=== PATIENT | male | born 1995 | race African-American/Black ===

== ENCOUNTER 2017-02-28 12:26 | Emergency (ER) | payer BC ==
--- NOTE | 2017-02-28 13:19 | EDPHY ---
H & P Stated Complaint: etoh last night n/v HPI/ROS: CHIEF COMPLAINT: Nausea, vomiting, weakness HISTORY OF PRESENT ILLNESS: The patient is a 21 y/o male complaining of nausea, vomiting, and weakness after drinking alcohol last night. He last drank at midnight last night, 13 hours ago; he is unsure how much he drank, but know that it was "alot". His symptoms began this morning. Does not believe he took any illicit substances. Denies urinary or bowel complaints, abdominal surgeries, fever, shortness of breath or other pertinent symptoms. REVIEW OF SYSTEMS: A ten point review of systems was performed and is negative with the exception of the items mentioned in the HPI. Past medical history: Denies Past surgical history: Right shoulder surgery Family history: Denies Social history: Lives in [place] Friend at bedside No tobacco use General Appearance: Alert. Vital signs reviewed. Lying on his stomach when I enter the room, moving about easily. BP 128/90 in triage. Eyes: Pupils equal and round, no conjunctival injection, no discharge. Anicteric. ENT, Mouth: Mucous membranes are moist, no oropharyngeal erythema or edema. Neck: No lymphadenopathy, supple. Respiratory: Lungs are clear to auscultation; no wheezes, rales, or rhonchi. Cardiovascular: Regular rate and rhythm; no murmur, rub, or gallop. Gastrointestinal: Abdomen is soft and nontender, no masses or organomegaly, bowel sounds normal. Skin: Warm and dry, no rashes on exposed skin, normal color. Back: Nontender to palpation over the thoracolumbar spine. No CVAT. Extremities: No lower extremity edema, no calf tenderness or swelling. Neurological: Alert and oriented. Moving all four extremities easily and equally. Psychiatric: Normal affect. - Personal History Current Tetanus/Diphtheria Vaccine: Yes - Medical/Surgical History Hx Asthma: No Hx Chronic Respiratory Disease: No Hx Diabetes: No Hx Cardiac Disease: No Hx Renal Disease: No Hx Cirrhosis: No Hx Alcoholism: No Hx HIV/AIDS: No Hx Splenectomy or Spleen Trauma: No Other PMH: r shoulder surg - Social History Smoking Status: Never smoked Constitutional: Initial Vital Signs Temperature (C) 36.3 C 02/28/17 12:46 Heart Rate 83 02/28/17 12:46 Respiratory Rate 18 02/28/17 12:46 Blood Pressure 128/90 H 02/28/17 12:46 O2 Sat (%) 97 02/28/17 12:46 O2 Delivery Mode Room Air Allergies/Adverse Reactions: No Known Allergies Allergy (Unverified 02/28/17 12:45) Home Medications: Medication Instructions Recorded Meloxicam 02/28/17 Ondansetron Odt [Zofran Odt 4 mg 4 mg PO Q4 PRN #6 tab 02/28/17 (RX)] Medical Decision Making ED Course/Re-evaluation: The patient is a 21 y/o male presenting with nausea, vomiting, and weakness after drinking an unknown amount of alcohol last night. His physical exam is normal. 2L IV NS and 4mg IV Zofran administered. Re-evaluated at 2:10 p.m.. He is resting comfortably, feeling better. No vomiting. Abdomen remains soft and nontender. 1523: Reassessed patient; he is still resting comfortably and not vomiting. Return precautions provided; patient is comfortable with this plan. Differential Diagnosis: Abdominal pain including but not limited to appendicitis, cholecystitis, pancreatitis, gastritis and urinary tract infection. - Data Points Laboratory Results: Laboratory Results 02/28/17 13:50 02/28/17 13:50 Medications Given: Discontinued Medications Sodium Chloride (Ns) 1,000 mls @ 0 mls/hr IV EDNOW ONE; Wide Open PRN Reason: Protocol Stop: 02/28/17 13:30 Last Admin: 02/28/17 13:52 Dose: 1,000 mls Sodium Chloride (Ns) 1,000 mls @ 0 mls/hr IV EDNOW ONE; Wide Open PRN Reason: Protocol Stop: 02/28/17 13:30 Last Admin: 02/28/17 13:53 Dose: 1,000 mls Ondansetron HCl (Zofran) 4 mg IVP EDNOW ONE Stop: 02/28/17 13:30 Last Admin: 02/28/17 13:53 Dose: 4 mg Departure - Departure Disposition: Home, Routine, Self-Care Clinical Impression: Nausea & vomiting Qualifiers: Vomiting type: unspecified Vomiting Intractability: non-intractable Qualified Code(s): R11.2 - Nausea with vomiting, unspecified Condition: Good Instructions: Acute Nausea and Vomiting (ED) Additional Instructions: Increase fluid intake. Take Zofran as prescribed for nausea. Follow-up with your primary doctor within 72 hours for unimproved symptoms. Return to the Emergency Department for fever, chest pain, shortness of breath, increasing pain, or other worsening of condition. Referrals: [facility],. [Clinic] - As per Instructions Prescriptions: Ondansetron Odt [Zofran Odt 4 mg (RX)] 4 mg PO Q4 PRN #6 tab PRN Reason: nausea Report Scribed for: Rocio Francisco Report Scribed by: Ml Puentes Date of Report: 02/28/17 Time of Report: 13:29 Physician Review and Approval Statement: 02/28/17 13:19 Portions of this note were transcribed by the certified medical asst. I, Dr. Rocio Francisco, personally performed the history, physical exam, and medical decision- making; and confirmed the accuracy of the information in the transcribed note.
[2017-02-28] MEDS ORDERED: ONDANSETRON 4 MG/2 ML VIAL IVP ONE (13:29)
[2017-02-28] MEDS ORDERED: NS 1,000 ML IV ONE ×2 (13:29)
[2017-02-28 14:01] LABS: PLATELET COUNT 334 10^3/uL (150-400)
[2017-02-28 15:41] VITALS: RESP 16; O2SAT 96
[2017-02-28 16:28] VITALS: BP 145/88; PULSE 87; TEMP 97.9
== END 2017-02-28 16:22 | disposition home or self-care (01) ==
DX: R11.2 Nausea with vomiting, unspecified (principal); E86.9 Volume depletion, unspecified
CPT/HCPCS: 96374; J2405